=== PATIENT | male | born 1995 | race Caucasian/White ===

== ENCOUNTER 2019-01-15 03:27 | Emergency (ER) | payer SELFPAY ==
[~2019-01-15] VITALS: Ht 183 cm; Wt 72.0 kg
[2019-01-15 03:32] VITALS: TEMP 97.7
[2019-01-15] MEDS ORDERED: AMOXICILLIN 8751 TAB PO (05:38)
[2019-01-15] MEDS ORDERED: NORCO 325 MG-51 TAB PO (05:39)
[2019-01-15 05:45] VITALS: BP 131/75; PULSE 87
== END 2019-01-15 05:52 | disposition home or self-care (01) ==
LOC: COL.ER 03:27
DX: S02.609A Fracture of mandible, unspecified, initial encounter for closed fracture (principal); S02.5XXA Fracture of tooth (traumatic), initial encounter for closed fracture; Y04.8XXA Assault by other bodily force, initial encounter